=== PATIENT | male | born 1975 | race Hispanic/Latino ===

== ENCOUNTER 2020-09-02 10:05 | Inpatient (IN) | payer OTHER, SELFPAY ==
--- NOTE | 2020-09-02 13:08 | PDOC.FPRHP ---
- History of Present Illness Chief Complaint: AMS History of Present Illness: Mr. Ring is a 45M presenting from [facility] where he has been residing for 34 days for alcohol use disorder. 2 days ago he started having confusion, lethargy, and RUQ abdominal pain. He has a hx of alcohol use disorder with complications of cirrhosis, esophageal varices that required ligation, and a hx of encephalopathy. He takes lactulose daily but did not take it this morning. He states the last time he drank alcohol was 39 days ago. He was taken to [facility] where he was given a total of 45mg lactulose and a banana bag and transferred to us. Other notable labs include: WBC 3.7, H/H 11/36.5, plts 116, PT 18, nml PTT/INR, AST of 41, nml ALT/Alk Phos. CXR and head CT were both normal. In our ED, ammonia was found to be 95 and CK of 218. ED Course: As described above - Allergies/Adverse Reactions Allergies Allergy/AdvReac Type Severity Reaction Status Date / Time Penicillins Allergy Unverified 09/02/20 13:47 - Home Medications Medication Instructions Recorded Confirmed Type Ferrous Sulfate [Feosol] 325 mg PO DAILY 09/02/20 09/02/20 History Furosemide [Lasix] 40 mg PO BID 09/02/20 09/02/20 History Lisinopril/Hydrochlorothiazide 1 tablet PO BID 09/02/20 09/02/20 History [Lisinopril-Hctz 20-12.5 mg Tab] Pantoprazole [Protonix] 40 mg PO DAILY 09/02/20 09/02/20 History Potassium Chloride 10 meq PO DAILY 09/02/20 09/02/20 History Propranolol [Inderal] 10 mg PO TID 09/02/20 09/02/20 History - History PMHx: alcohol use disorder with cirrhosis and hx of esophageal varices and encephalopathy. HTN, DM PSHx: esophageal varices ligated FHx: Unknown as pt is adopted Social: no alcohol x 39 days. Chews tobacco. Denies other drug use. Lives at [facility] x 34 days - Review of Systems ROS unobtainable: other (limited by pt's somnolence) General: reports: fatigue Respiratory: denies: cough, shortness of breath Cardiovascular: denies: chest pain, edema Gastrointestinal: reports: abdominal pain. denies: vomiting, diarrhea, GI bleeding Genitourinary: denies: dysuria Skin: denies: rashes, lesions Musculoskeletal: denies: pain - Vital signs BP: 151/93 HR: 89 RR: 20 Tmax: 97.4F Pox: 99% on RA Wt: 166kg - Physical Exam Constitutional: NAD, well developed (obese) -Constitutional: Lethargic, falls asleep as he is talking but is easily arousable HEENT: normocephalic and atraumatic, grossly normal vision, grossly normal hearing Neck: supple Chest: no-tender to palpation, no lesions Heart: RRR, normal S1/S2, no murmurs/rubs/gallops, no edema Lungs: CTAB, no respiratory distress, good air movement Abdomen: soft, bowel sounds present, no masses/distention -Abdomen: Mildly tender to deep palpation in RUQ. Unclear whether this is because deep palpation is required to put pressure on the liver or if it is truly not that tender. No visible caput medusae or spider angiomata Musculoskeletal: normal structure, normal tone Neurological: no focal deficit Skin: no rash/lesions Heme/Lymphatic: no petechia Psychiatric: normal mood and affect, good judgment and insight, intact recent and remote memory FMR H&P: Results - Labs Lab results: Ammonia 95 umol/L (18-72) H 09/02/20 10:40 Lab results from [facility] and [facility] reviewed by me FMR H&P: A/P - Plan Likely hepatic encephalopathy - Hx of alcohol use disorder with cirrhosis and hx of encephalopathy - MELD score 11 - Last drank >30 days ago, living at [facility] - Takes lactulose daily - Received 45mg in [facility] and another 30mg are ordered - Lactulose scheduled at 20mg BID until 2-3 BMs per day Hx of esophageal varices - s/p ligation - Restart home meds HTN - POA - Monitor BPs - Continue home meds DM - Per pt, was diagnosed but does not take medications - A1c ordered - ACHS checks with SSI - Hypoglycemia protocol ordered Obesity - Educate regarding diet and exercise Dispo: Inpt medical, LOS >48h Diet: HH DVT: Joseph 40 IVF: N/A PCP: CC Code: Full FMR H&P: Upper Level - Pertinent findings Mr Ring is a 45yo male with pmh of liver cirrhosis 2/2 long hx of alcohol abuse presents with AMS and abdominal pain. Pt is a member of [facility] rehab and they report he has been altered for last 2 days. He reports he is back to his baseline but was very confused the last day or 2. Has had this happened before and it resolved with increase in his lactulose dose. Reports abdominal pain that started yesterday. Has been sober for 1 week and 5 days per patient. Has a hx of seizures and etoh withdrawal, reports he had it this time he stopped drinking but it has resolved. Last BM yesterday. At OSH received lactulose 30ml, 15ml and 1L banana bag. Sees Dr Cerda ([facility]) and Dr Wing ([place]). PE: General: Alert and oriented to person, place, time and situation. NAD, morbidly obese. Falling asleep towards end of interview. When asleep deep snoring and choking. HEENT: No scleral icterus CV: RRR, no murmur Pulm: CTA b/l Extremities: No edema CT: neg Bedside US with no ascites A/P: Acute encephalopathy 2/2 alcoholic cirrhosis - A&Ox4. Ammonia 95. Titrate lactulose to 2-3 BMs per day. Admit to medical. Cirrhosis - MELD: 11. Abdominal Pain - Afebrile, no ascites on bedside US. No concern for SBP. Continue to monitor. Would avoid use of NSAIDs and Tylenol due to cirrhosis. Avoid opioids if possible due to pts encephalopathy. Alcohol abuse - Last drink 12 days ago. Monitor with ASE protocol. Ativan PRN. Daily folate, MV and thiamine. Has hx of withdrawal seizures CLAUDE - Noncompliant with CPAP, will order for inpatient - Plan Date/Time: 09/02/20 1308 IBonny, have evaluated this patient and agree with findings/plan as outlined by compensation intern resident. Pertinent changes/additions are listed here.
[2020-09-02 13:43] VITALS: BMI 50.9
[2020-09-02] MEDS ORDERED: Morphine 2 MG/ML VIAL SLOW IVP PRN (13:47)
[2020-09-02] MEDS ORDERED: Ondansetron PF 4 MG/2 ML Vial IVP PRN (14:00)
[2020-09-02] MEDS ORDERED: Acetaminophen 325 MG TAB PO PRN (14:00)
[2020-09-02] MEDS ORDERED: Ondansetron ODT 4 MG TAB SL PRN (14:00)
[2020-09-02] MEDS ORDERED: HumaLOG 300 UNITS/3 ML VIAL SC PRN ×2 (16:20)
[2020-09-02] MEDS ORDERED: Dextrose 50% Abboject 50 ML SYRINGE SLOW IVP PRN (16:20)
[2020-09-02] MEDS ORDERED: Dextrose 5% in Water 1,000 ML IV PRN (16:20)
[2020-09-02] MEDS ORDERED: Lorazepam 2 MG/ML VIAL SLOW IVP PRN (16:50)
[2020-09-02 19:30] LABS: Hemoglobin A1c 4.5 % (4.0-6.0)
[2020-09-02] MEDS ORDERED: Lisinopril/Hydrochlorothiazide 20 mg/12.5 mg Tablet PO SCH (21:00)
[2020-09-02] MEDS: Furosemide 40 MG TAB PO SCH (21:05)
[2020-09-02] MEDS: Propranolol 10 MG TAB PO SCH (21:05)
[2020-09-03 06:15] LABS: ALT (SGPT) 20 U/L (8-55); AST (SGOT) 33 U/L (5-34); Albumin 2.9 g/dL (3.5-5.0); Alkaline Phosphatase 50 U/L (40-110); Anion Gap 11 mmol/L (10-20); BUN (Urea Nitrogen) 10 mg/dL (8.9-20.6); Bilirubin, Total 1.2 mg/dL (0.2-1.2); Calc. Creatinine Clearance 237 mL/min (70-130); Calcium 8.6 mg/dL (7.8-10.44); Carbon Dioxide 24 mmol/L (22-29); Chloride 106 mmol/L (98-107); Estimated GFR-MDRD 88; Globulin 4.1 g/dL (2.4-3.5); Glucose 107 mg/dL (70-105); Potassium 3.7 mmol/L (3.5-5.1); Sodium 137 mmol/L (136-145)
--- NOTE | 2020-09-03 06:44 | PDOC.FM ---
- Subjective Subjective: Mr. Ring is doing well this morning and is A&O x4. He is still extremely lethargic and fell asleep multiple times during his assessment. He states his abdominal pain has resolved. He states he had 5 BMs yesterday and 1 this morning. - Objective Vital Signs & Weight: Vital Signs (12 hours) Temp Pulse Resp BP Pulse Ox 09/03/20 04:23 97.5 F L 78 18 104/68 98 09/03/20 02:43 118/60 09/03/20 01:11 97.1 F L 84 20 98/57 L 98 09/02/20 21:05 92 09/02/20 20:00 98.5 F 92 18 130/88 100 Weight Weight 165.561 kg I&O: 09/01/20 09/02/20 09/03/20 06:59 06:59 06:59 Intake Total 480 Balance 480 Result Diagrams: 09/03/20 05:28 Phys Exam - Physical Examination Constitutional: NAD (sleeping comfortably, easily arousable, but lethargic and falls asleep quickly) HEENT: moist MMs Neck: supple Respiratory: clear to auscultation bilateral Cardiovascular: RRR (difficult to auscultate, likely 2/2 body habitus) Gastrointestinal: soft, non-tender (to light and deep palpation), no distention, positive bowel sounds Musculoskeletal: no edema, pulses present (2+ in dp b/l) Neurological: non-focal, moves all 4 limbs Psychiatric: A&O x 3 Skin: no rash Dx/Plan - Plan Plan: Likely hepatic encephalopathy - Hx of alcohol use disorder with cirrhosis and hx of encephalopathy - MELD score 11 - ASE protocol ordered - Has had 6+ BMs since arrival d/t lactulose. - A&O x4 - Plan discharge today Hx of esophageal varices - s/p ligation - Restart home meds HTN - POA - Monitor BPs - Continue home meds Obesity - Educate regarding diet and exercise DM - Ruled out: A1c 4.5 - ACHS checks, SSI, hypoglycemia protocol discontinued Dispo: Inpt medical, plan for discharge today Diet: HH DVT: Joseph 40 IVF: N/A PCP: CC Code: Full
[2020-09-03] MEDS ORDERED: Enoxaparin Sodium 40 MG/0.4 ML SYRINGE SC SCH (09:00)
[2020-09-03] MEDS ORDERED: Potassium Chloride 10 MEQ TAB PO SCH (09:00)
[2020-09-03] MEDS ORDERED: Ferrous Sulfate 325 MG TAB PO SCH (09:00)
[2020-09-03] MEDS: Propranolol 10 MG TAB PO SCH ×2 (09:54→15:42)
[2020-09-03] MEDS: Furosemide 40 MG TAB PO SCH ×2 (09:56→13:28)
[2020-09-03 11:01] LABS: SARS-CoV-2 MS2 Positive; SARS-CoV-2 N Gene Negative; SARS-CoV-2 S Gene Negative; SARS-CoV-2 by NAA Not Detected (NotDetected); SARS-CoV-2 orf1ab Negative
[2020-09-03 11:07] VITALS: BP 124/69; TEMP 98.7
--- NOTE | 2020-09-05 14:35 | DIS ---
DATE OF ADMISSION: 09/02/2020 DATE OF DISCHARGE: 09/03/2020 RESIDENT: LATOYA RAMSEY MD. ADMITTING ATTENDING: Russell Longo MD. DISCHARGE ATTENDING: Russell Longo MD. CONSULT: None. PROCEDURES: None. PRIMARY DIAGNOSIS: Hepatic encephalopathy secondary to cirrhosis as a result of a history of alcohol use disorder. SECONDARY DIAGNOSES: History of esophageal varices, history of hepatic encephalopathy, hypertension, and diabetes. DISCHARGE MEDICATIONS: 1. Propranolol 10 mg p.o. t.i.d. 2. Protonix 40 mg p.o. daily. 3. Lisinopril-hydrochlorothiazide 20-12.5 mg one tablet p.o. twice daily. 4. Furosemide 40 mg p.o. b.i.d. 5. Ferrous sulfate 325 mg p.o. daily. 6. Potassium chloride 10 mEq p.o. daily. 7. Lactulose. DISCONTINUED MEDICATIONS: None. HPI/HOSPITAL COURSE: Mr. Ring is a 45-year-old male who presented from [facility] where he had been residing for 34 days for alcohol use disorder. Two days prior to arrival, he was having confusion, lethargy, right upper quadrant abdominal pain. He has a history of alcohol use complications of cirrhosis, esophageal varices, and hepatic encephalopathy. He takes lactulose daily, but did not take it in the past 2 days. The last time he drank alcohol was 39 days ago. He was initially taken to [facility] where he was given a total of 45 mg of lactulose and a banana bag and then transferred to us. Notable labs include ammonia 95, CK 218. White cell count of 3.7, hemoglobin of 11, hematocrit 36.5, and platelets 116. PT 18, normal PTT/INR, AST 41, normal ALT/alkaline phosphatase. Chest x-ray and head CT were both normal. He was found to have a MELD score of 11. Lactulose was scheduled at 20 mg b.i.d. initially with titration until 2 to 3 bowel movements per day was elicited. Later that same day, he was A and O x3 and was much less somnolent. By the next morning, his right upper quadrant abdominal pain had resolved, and his mentation was back to baseline, so he was discharged. DISPOSITION: Stable. DISCHARGE INSTRUCTION: LOCATION: [facility]. DIET: Diabetic diet. ACTIVITY: As tolerated. FOLLOWUP: The patient has said to not have a PCP and was encouraged to follow up with us at [facility] in 7 to 10 days. A card was provided to him. Job ID: [id number]
== END 2020-09-03 16:22 | disposition home or self-care (01) | DRG 433 ==
LOC: ERS 10:05 → T4-A 11:45
PROVIDERS: ADMIT Family Medicine; ATTEND Family Medicine
PROC: HZ2ZZZZ Detoxification Services for Substance Abuse Treatment (ICD-10-PCS; principal; 2020-09-02)
DX: K70.40 Alcoholic hepatic failure without coma (principal); I85.10 Secondary esophageal varices without bleeding; Z68.43 Body mass index [BMI] 50.0-59.9, adult; K70.30 Alcoholic cirrhosis of liver without ascites; E11.9 Type 2 diabetes mellitus without complications; Z20.828 Contact with and (suspected) exposure to other viral communicable diseases; I50.9 Heart failure, unspecified; I11.0 Hypertensive heart disease with heart failure; F17.220 Nicotine dependence, chewing tobacco, uncomplicated; G47.33 Obstructive sleep apnea (adult) (pediatric); F10.10 Alcohol abuse, uncomplicated; E66.01 Morbid (severe) obesity due to excess calories; Z88.0 Allergy status to penicillin; Z79.899 Other long term (current) drug therapy; Z91.19 Patient's noncompliance with other medical treatment and regimen
CPT/HCPCS: 36415; 36416; 80053; 82140; 83036; 87635; 99285; U0003

== ENCOUNTER 2022-09-03 10:47 | Inpatient (IN) | payer SELFPAY ==
[2022-09-03] MEDS ORDERED: Ondansetron PF 4 MG/2 ML Vial ONE ×2 (11:35→11:36)
[2022-09-03] MEDS ORDERED: Morphine 4 MG/ML VIAL ONE (11:35)
[2022-09-03] MEDS ORDERED: Furosemide 40 MG/4 ML VIAL ONE (11:35)
[2022-09-03 11:42] LABS: #Eosinphils 0.1 thou/uL (0.0-0.7); #Lymphocytes 0.5 thou/uL (1.20-3.40); #Monocytes 0.3 thou/uL (0.11-0.59); #Neutrophils 1.5 thou/uL (1.40-6.50); %Basophils 0.9 % (0.0-1.0); %Eosinophils 2.9 % (0.0-10.0); %Lymphocytes 20.1 % (21.0-51.0); %Monocytes 11.5 % (0.0-10.0); %Neutrophils 64.6 % (42.0-75.0); Hemoglobin 8.9 g/dL (14.0-18.0); Mean Corpuscular HGB CONC 30.7 g/dL (32.0-36.0); Mean Corpuscular Hemoglobin 24.2 pg (27.0-31.0); Mean Corpuscular Volume 78.9 fL (78.0-98.0); Mean Platelet Volume 12.4 fL (7.4-10.4); Platelet Count 42 thou/uL (130-400); RBC Distribution Width 16.2 % (11.5-14.5); Red Blood Cell (RBC) Count 3.66 mill/uL (4.70-6.10); White Blood Cell (WBC) Count 2.3 thou/uL (4.8-10.8)
[2022-09-03 11:54] LABS: ALT (SGPT) 43 U/L (8-55); AST (SGOT) 76 U/L (5-34); Albumin 3.2 g/dL (3.5-5.0); Alkaline Phosphatase 83 U/L (40-110); Anion Gap 17 mmol/L (10-20); BUN (Urea Nitrogen) 5 mg/dL (8.9-20.6); Bilirubin, Total 1.9 mg/dL (0.2-1.2); Calc. Creatinine Clearance 0 mL/min (70-130); Calcium 8.2 mg/dL (7.8-10.44); Carbon Dioxide 19 mmol/L (22-29); Chloride 106 mmol/L (98-107); Estimated GFR 116; Globulin 4.1 g/dL (2.4-3.5); Glucose 103 mg/dL (70-105); Lipase 32 U/L (8-78); Potassium 4.3 mmol/L (3.5-5.1); Protein, Total 7.3 g/dL (6.0-8.3); Sodium 138 mmol/L (136-145)
[2022-09-03 12:06] LABS: Hypochromia SLIGHT = 6-15 cells (100X) (0-5/hpf); Large Platelets SLIGHT; MDiff Complete? YES; Ovalocytes SLIGHT = 2-5 cells (100X) (0-1/hpf); Platelet Morphology Comment Appears Decreased; Polychromasia SLIGHT = 2-3 cells (100X) (0-2/hpf); Target Cells SLIGHT = 2-5 cells (100X) (0-1/hpf); Tear Drops SLIGHT = 2-5 cells (100X) (0-1/hpf)
[2022-09-03 12:40] LABS: SARS-CoV-2 NAA Rapid Test Not Detected (NotDetected)
[2022-09-03 13:38] LABS: INR-International Normal Ratio 1.6; PTT 35.2 sec (22.9-36.1)
[2022-09-03 13:42] LABS: CK (CPK) 336 U/L (30-200); Magnesium 1.5 mg/dL (1.6-2.6); Phosphorus 2.8 mg/dL (2.3-4.7)
[2022-09-03] MEDS ORDERED: Electrolyte Replacement Protocol 1 EACH FS SCH (14:30)
[2022-09-03] MEDS ORDERED: Calcium Carbonate 500 MG ChewTAB PO PRN (14:36)
[2022-09-03] MEDS ORDERED: Ondansetron ODT 4 MG TAB PO PRN (14:36)
[2022-09-03] MEDS ORDERED: Ondansetron PF 4 MG/2 ML Vial IVP PRN (14:36)
[2022-09-03] MEDS ORDERED: Senokot S 8.6-50 MG TAB PO PRN (14:36)
[2022-09-03] MEDS ORDERED: Dextrose 5% in Water 1,000 ML IV PRN (14:40)
[2022-09-03] MEDS ORDERED: Dextrose 50% Abboject 50 ML SYRINGE SLOW IVP PRN (14:40)
[2022-09-03] MEDS ORDERED: Insulin Regular 300 UNITS/3 ML VIAL SC PRN ×2 (14:40)
[2022-09-03] MEDS ORDERED: Magnesium Sulfate In Water 4 GM in Premix Bag 1 BAG IVPB SCH (15:00)
[2022-09-03] MEDS: Furosemide 40 MG/4 ML VIAL SLOW IVP SCH (15:58)
[2022-09-03] MEDS: Potassium Chloride 20 MEQ TAB PO SCH (15:58)
[2022-09-03] MEDS: Propranolol 10 MG TAB PO SCH ×2 (15:58→21:05)
[2022-09-03] MEDS: Albumin 25% 25 GM/100 ML BOT IVPB SCH ×2 (15:58→20:53)
[2022-09-03 18:49] LABS: Critical Call CKMB RESULT DECREASING
[2022-09-03] MEDS ORDERED: diphenhydrAMINE 25 MG CAP PO SCH (20:00)
[2022-09-03] MEDS: Multivit, Therapeutic 1 TAB PO SCH (20:51)
[2022-09-03] MEDS: Thiamine 100 MG TAB PO SCH (20:52)
[2022-09-03] MEDS: Folic Acid 1 MG TAB PO SCH (20:52)
[2022-09-04] MEDS: Albumin 25% 25 GM/100 ML BOT IVPB SCH ×3 (03:28→15:10)
[2022-09-04] MEDS: Furosemide 40 MG/4 ML VIAL SLOW IVP SCH ×2 (07:29→15:10)
[2022-09-04] MEDS: Propranolol 10 MG TAB PO SCH ×3 (08:13→20:52)
[2022-09-04] MEDS: Potassium Chloride 20 MEQ TAB PO SCH ×2 (08:13→15:11)
[2022-09-04] MEDS ORDERED: Aspirin 81 mg Enteric Coated Tablet PO SCH (09:00)
[2022-09-04 12:39] VITALS: BMI 61.6
[2022-09-04] MEDS: Folic Acid 1 MG TAB PO SCH (20:52)
[2022-09-04] MEDS: Multivit, Therapeutic 1 TAB PO SCH (20:52)
[2022-09-04] MEDS: Thiamine 100 MG TAB PO SCH (20:52)
[2022-09-05] MEDS ORDERED: Melatonin 3 MG TAB PO SCH (01:30)
[2022-09-05 03:19] LABS: Anion Gap 11 mmol/L (10-20); BUN (Urea Nitrogen) 15 mg/dL (8.9-20.6); Calc. Creatinine Clearance 274 mL/min (70-130); Carbon Dioxide 29 mmol/L (22-29); Chloride 101 mmol/L (98-107); Estimated GFR 101; Glucose 97 mg/dL (70-105); Magnesium 1.9 mg/dL (1.6-2.6); Potassium 3.9 mmol/L (3.5-5.1); Sodium 137 mmol/L (136-145)
[2022-09-05] MEDS: Furosemide 40 MG/4 ML VIAL SLOW IVP SCH (05:44)
[2022-09-05] MEDS ORDERED: Magnesium 2 GM/50 ML(in water) 2 GM in Premix Bag 1 BAG IVPB SCH (08:00)
[2022-09-05] MEDS: Propranolol 10 MG TAB PO SCH (08:25)
[2022-09-05] MEDS: Potassium Chloride 20 MEQ TAB PO SCH (08:26)
[2022-09-05 08:35] VITALS: BP 117/56
[2022-09-05 08:46] VITALS: TEMP 97.7
== END 2022-09-05 11:34 | disposition home or self-care (01) | DRG 154 ==
LOC: ERS 10:47 → 2SW 14:39
PROVIDERS: ADMIT Internal Medicine; ATTEND Internal Medicine
DX: G47.33 Obstructive sleep apnea (adult) (pediatric) (principal); I50.33 Acute on chronic diastolic (congestive) heart failure; J96.21 Acute and chronic respiratory failure with hypoxia; Z68.44 Body mass index [BMI] 60.0-69.9, adult; I85.10 Secondary esophageal varices without bleeding; E66.01 Morbid (severe) obesity due to excess calories; E11.9 Type 2 diabetes mellitus without complications; K70.30 Alcoholic cirrhosis of liver without ascites; D69.6 Thrombocytopenia, unspecified; K21.9 Gastro-esophageal reflux disease without esophagitis; I11.0 Hypertensive heart disease with heart failure; R79.89 Other specified abnormal findings of blood chemistry; E83.42 Hypomagnesemia; Z20.822 Contact with and (suspected) exposure to COVID-19; Z88.0 Allergy status to penicillin; Z88.8 Allergy status to other drugs, medicaments and biological substances; Z98.84 Bariatric surgery status; Z79.899 Other long term (current) drug therapy; Z87.891 Personal history of nicotine dependence
CPT/HCPCS: 36415; 36416; 71045; 76705; 80048; 80053; 82550; 82553; 83690; 83735; 83880; 84100; 84484; 85025; 85610; 85730; 93005; 93306; 94760; 96374; 96375; J1940; J2270; J2405; J3475; P9047

== ENCOUNTER 2022-10-07 14:30 | Inpatient (IN) | payer SELFPAY ==
[2022-10-07] MEDS ORDERED: HumaLOG 300 UNITS/3 ML VIAL SC PRN ×2 (17:59)
[2022-10-07] MEDS ORDERED: Ondansetron PF 4 MG/2 ML Vial IVP PRN (17:59)
[2022-10-07] MEDS ORDERED: Dextrose 50% Abboject 50 ML SYRINGE SLOW IVP PRN (17:59)
[2022-10-07] MEDS ORDERED: Acetaminophen 325 MG TAB PO PRN (17:59)
[2022-10-07] MEDS ORDERED: Senokot S 8.6-50 MG TAB PO PRN (17:59)
[2022-10-07] MEDS ORDERED: Dextrose 5% in Water 1,000 ML IV PRN (17:59)
[2022-10-07] MEDS ORDERED: Guaifenesin DM 100-10/5 ML UDCUP PO PRN (17:59)
[2022-10-07] MEDS: Morphine 4 MG/ML VIAL SLOW IVP PRN ×2 (18:47→23:09)
[2022-10-07 19:12] LABS: Iron 30 ug/dL (65-175); Iron Binding Capacity, Total 373 mcg/dL (261-462)
[2022-10-07 19:36] LABS: Ferritin 96.71 ng/mL (22-322)
[2022-10-07] MEDS: Carvedilol 3.125 MG TAB PO SCH (21:55)
[2022-10-07] MEDS: Folic Acid 1 MG TAB PO SCH (21:55)
[2022-10-07] MEDS: Thiamine 100 MG TAB PO SCH (21:55)
[2022-10-07] MEDS: Pantoprazole 40 MG VIAL IVP SCH (21:56)
[2022-10-08] MEDS: Morphine 4 MG/ML VIAL SLOW IVP PRN ×2 (04:25→08:34)
[2022-10-08] MEDS: Furosemide 40 MG/4 ML VIAL SLOW IVP SCH ×2 (06:20→14:52)
[2022-10-08] MEDS: Carvedilol 3.125 MG TAB PO SCH (08:25)
[2022-10-08] MEDS: Pantoprazole 40 MG VIAL IVP SCH ×2 (08:26→20:26)
[2022-10-08] MEDS: Potassium Chloride 20 MEQ TAB PO SCH ×2 (08:27→16:12)
[2022-10-08] MEDS ORDERED: Losartan 25 MG TAB PO SCH (09:00)
[2022-10-08 09:37] LABS: ALT (SGPT) 59 U/L (8-55); AST (SGOT) 100 U/L (5-34); Albumin 3.2 g/dL (3.5-5.0); Alkaline Phosphatase 85 U/L (40-110); Anion Gap 12 mmol/L (10-20); BUN (Urea Nitrogen) 9 mg/dL (8.9-20.6); Bilirubin, Total 3.9 mg/dL (0.2-1.2); Calc. Creatinine Clearance 346 mL/min (70-130); Calcium 8.3 mg/dL (7.8-10.44); Carbon Dioxide 26 mmol/L (22-29); Chloride 101 mmol/L (98-107); Estimated GFR 111; Globulin 3.9 g/dL (2.4-3.5); Glucose 101 mg/dL (70-105); Potassium 3.7 mmol/L (3.5-5.1); Protein, Total 7.1 g/dL (6.0-8.3); Sodium 135 mmol/L (136-145)
[2022-10-08 10:23] LABS: Hemoglobin 7.7 g/dL (14.0-18.0); Mean Corpuscular HGB CONC 30.9 g/dL (32.0-36.0); Mean Corpuscular Hemoglobin 24.7 pg (27.0-31.0); Mean Corpuscular Volume 79.7 fl (78.0-98.0); Mean Platelet Volume 12.6 fL (7.4-10.4); Platelet Count 38 10x3/uL (130-400); White Blood Cell (WBC) Count 2.4 10x3/uL (4.8-10.8)
[2022-10-08 11:27] LABS: Band 1 % (5-11); Elliptocytes SLIGHT = 2-5 cells (100X) (0-1/hpf); Eosinophils 1 % (0-10); Hypochromia MODERATE=16-30 cells (100X) (0-5/hpf); Lymphocytes 11 % (21-51); MDiff Complete? YES; Monocytes 8 % (0-10); Neutrophil 76 % (42-75); Platelet Morphology Comment Appears Decreased
[2022-10-08] MEDS ORDERED: Empagliflozin 25 MG TAB PO SCH (11:30)
[2022-10-08] MEDS ORDERED: Spironolactone 25 MG TAB PO SCH (11:45)
[2022-10-08] MEDS: Iron, Sodium Ferric Gluconate 250 MG in Sodium Chloride 0.9% 250 ML 250 ML IVPB SCH (14:52)
[2022-10-08] MEDS: Carvedilol 6.25 MG TAB PO SCH (16:12)
[2022-10-08] MEDS: Folic Acid 1 MG TAB PO SCH (20:26)
[2022-10-08] MEDS: Rifaximin 550 MG TAB PO SCH (20:26)
[2022-10-08] MEDS: Thiamine 100 MG TAB PO SCH (20:26)
[2022-10-08 23:11] LABS: Hemoglobin A1c 5.3 % (4.0-6.0)
[2022-10-09] MEDS ORDERED: diphenhydrAMINE 25 MG CAP PO SCH (00:45)
[2022-10-09 05:43] LABS: Anion Gap 14 mmol/L (10-20); BUN (Urea Nitrogen) 11 mg/dL (8.9-20.6); Calc. Creatinine Clearance 341 mL/min (70-130); Calcium 8.2 mg/dL (7.8-10.44); Carbon Dioxide 22 mmol/L (22-29); Chloride 103 mmol/L (98-107); Estimated GFR 112; Glucose 81 mg/dL (70-105); Potassium 4.5 mmol/L (3.5-5.1); Sodium 134 mmol/L (136-145)
[2022-10-09] MEDS: Furosemide 40 MG/4 ML VIAL SLOW IVP SCH ×2 (06:25→15:04)
[2022-10-09 08:31] LABS: Anion Gap 11 mmol/L (10-20); BUN (Urea Nitrogen) 11 mg/dL (8.9-20.6); Calc. Creatinine Clearance 325 mL/min (70-130); Calcium 8.4 mg/dL (7.8-10.44); Carbon Dioxide 27 mmol/L (22-29); Chloride 102 mmol/L (98-107); Estimated GFR 110; Glucose 88 mg/dL (70-105); Potassium 3.6 mmol/L (3.5-5.1); Sodium 136 mmol/L (136-145)
[2022-10-09] MEDS: Pantoprazole 40 MG VIAL IVP SCH ×2 (08:39→21:23)
[2022-10-09] MEDS: Potassium Chloride 20 MEQ TAB PO SCH ×2 (08:40→17:09)
[2022-10-09] MEDS: Empagliflozin 25 MG TAB PO SCH (08:40)
[2022-10-09] MEDS: Spironolactone 25 MG TAB PO SCH (08:40)
[2022-10-09] MEDS: Multivitamin W/ Minerals 1 TAB PO SCH (08:40)
[2022-10-09] MEDS: Losartan 25 MG TAB PO SCH (08:40)
[2022-10-09] MEDS: Rifaximin 550 MG TAB PO SCH ×2 (08:40→21:23)
[2022-10-09] MEDS: Carvedilol 6.25 MG TAB PO SCH ×2 (08:40→17:09)
[2022-10-09 09:22] LABS: #Eosinphils 0.1 thou/uL (0.0-0.7); #Lymphocytes 0.7 thou/uL (1.20-3.40); #Monocytes 0.4 thou/uL (0.11-0.59); #Neutrophils 1.4 thou/uL (1.40-6.50); %Basophils 0.9 % (0.0-1.0); %Monocytes 14.3 % (0.0-10.0); %Neutrophils 54.8 % (42.0-75.0); Hemoglobin 7.3 g/dL (14.0-18.0); Mean Corpuscular HGB CONC 28.5 g/dL (32.0-36.0); Mean Corpuscular Hemoglobin 23.3 pg (27.0-31.0); Mean Corpuscular Volume 81.6 fl (78.0-98.0); Mean Platelet Volume 13.3 fL (7.4-10.4); Platelet Count 47 10x3/uL (130-400); RBC Distribution Width 19.2 % (11.5-14.5); Red Blood Cell (RBC) Count 3.15 mill/uL (4.70-6.10); White Blood Cell (WBC) Count 2.6 10x3/uL (4.8-10.8)
[2022-10-09 09:45] LABS: Hypochromia SLIGHT = 6-15 cells (100X) (0-5/hpf); MDiff Complete? YES; Platelet Morphology Comment Appears Decreased; Polychromasia SLIGHT = 2-3 cells (100X) (0-2/hpf)
[2022-10-09] MEDS: Iron, Sodium Ferric Gluconate 250 MG in Sodium Chloride 0.9% 250 ML 250 ML IVPB SCH (11:13)
[2022-10-09] MEDS: Thiamine 100 MG TAB PO SCH (21:23)
[2022-10-09] MEDS: Folic Acid 1 MG TAB PO SCH (21:23)
[2022-10-10 05:35] LABS: Anion Gap 9 mmol/L (10-20); BUN (Urea Nitrogen) 13 mg/dL (8.9-20.6); Calc. Creatinine Clearance 299 mL/min (70-130); Calcium 8.5 mg/dL (7.8-10.44); Carbon Dioxide 29 mmol/L (22-29); Chloride 102 mmol/L (98-107); Estimated GFR 107; Glucose 99 mg/dL (70-105); Potassium 3.8 mmol/L (3.5-5.1); Sodium 136 mmol/L (136-145)
[2022-10-10 06:02] LABS: Anisocytosis SLIGHT = 6-15 cells (100X) (0-5/hpf); Band 1 % (5-11); Eosinophils 4 % (0-10); Hypochromia SLIGHT = 6-15 cells (100X) (0-5/hpf); Lymphocytes 23 % (21-51); MDiff Complete? YES; Mean Corpuscular HGB CONC 30.9 g/dL (32.0-36.0); Mean Corpuscular Hemoglobin 25.4 pg (27.0-31.0); Mean Corpuscular Volume 82.2 fl (78.0-98.0); Mean Platelet Volume 13.1 fL (7.4-10.4); Monocytes 11 % (0-10); Myelocyte 3 % (0-0); Neutrophil 57 % (42-75); Nucleated RBC 1 % (0); Platelet Count 51 10x3/uL (130-400); Platelet Morphology Comment Appears Decreased; Polychromasia SLIGHT = 2-3 cells (100X) (0-2/hpf); RBC Distribution Width 19.8 % (11.5-14.5); Red Blood Cell (RBC) Count 2.75 mill/uL (4.70-6.10); White Blood Cell (WBC) Count 2.9 10x3/uL (4.8-10.8)
[2022-10-10] MEDS: Furosemide 40 MG/4 ML VIAL SLOW IVP SCH ×2 (06:47→13:10)
[2022-10-10] MEDS: Spironolactone 25 MG TAB PO SCH (08:34)
[2022-10-10] MEDS: Losartan 25 MG TAB PO SCH (08:34)
[2022-10-10] MEDS: Carvedilol 6.25 MG TAB PO SCH ×2 (08:34→16:08)
[2022-10-10] MEDS: Potassium Chloride 20 MEQ TAB PO SCH ×2 (08:35→16:09)
[2022-10-10] MEDS: Empagliflozin 25 MG TAB PO SCH (08:35)
[2022-10-10] MEDS: Multivitamin W/ Minerals 1 TAB PO SCH (08:36)
[2022-10-10] MEDS: Rifaximin 550 MG TAB PO SCH ×2 (08:36→19:53)
[2022-10-10] MEDS: Pantoprazole 40 MG VIAL IVP SCH ×2 (08:37→19:53)
[2022-10-10 12:17] LABS: Hemoglobin 7.5 g/dL (14.0-18.0)
[2022-10-10] MEDS: Folic Acid 1 MG TAB PO SCH (19:53)
[2022-10-10] MEDS: Thiamine 100 MG TAB PO SCH (19:53)
[2022-10-11 06:00] LABS: Anion Gap 10 mmol/L (10-20); BUN (Urea Nitrogen) 12 mg/dL (8.9-20.6); Calc. Creatinine Clearance 287 mL/min (70-130); Calcium 8.3 mg/dL (7.8-10.44); Carbon Dioxide 27 mmol/L (22-29); Chloride 106 mmol/L (98-107); Estimated GFR 105; Glucose 93 mg/dL (70-105); Potassium 3.8 mmol/L (3.5-5.1); Sodium 139 mmol/L (136-145)
[2022-10-11] MEDS: Furosemide 40 MG/4 ML VIAL SLOW IVP SCH ×2 (06:05→14:25)
[2022-10-11 06:54] LABS: #Eosinphils 0.2 thou/uL (0.0-0.7); #Lymphocytes 0.9 thou/uL (1.20-3.40); #Monocytes 0.5 thou/uL (0.11-0.59); #Neutrophils 1.8 thou/uL (1.40-6.50); %Basophils 0.8 % (0.0-1.0); %Eosinophils 5.7 % (0.0-10.0); %Lymphocytes 27.6 % (21.0-51.0); %Monocytes 13.7 % (0.0-10.0); %Neutrophils 52.2 % (42.0-75.0); Hemoglobin 7.3 g/dL (14.0-18.0); Hypochromia SLIGHT = 6-15 cells (100X) (0-5/hpf); MDiff Complete? YES; Mean Corpuscular HGB CONC 30.6 g/dL (32.0-36.0); Mean Corpuscular Hemoglobin 25.1 pg (27.0-31.0); Mean Platelet Volume 12.9 fL (7.4-10.4); Ovalocytes SLIGHT = 2-5 cells (100X) (0-1/hpf); Platelet Count 59 10x3/uL (130-400); Platelet Morphology Comment Appears Decreased; RBC Distribution Width 20.4 % (11.5-14.5); Red Blood Cell (RBC) Count 2.92 mill/uL (4.70-6.10); White Blood Cell (WBC) Count 3.4 10x3/uL (4.8-10.8)
[2022-10-11] MEDS: Multivitamin W/ Minerals 1 TAB PO SCH (08:18)
[2022-10-11] MEDS: Rifaximin 550 MG TAB PO SCH ×2 (08:19→20:34)
[2022-10-11] MEDS: Potassium Chloride 20 MEQ TAB PO SCH ×2 (08:19→17:06)
[2022-10-11] MEDS: HYDROcodone/Acetaminophen 5/325 mg Tablet PO PRN ×3 (08:19→20:35)
[2022-10-11] MEDS: Losartan 25 MG TAB PO SCH (08:19)
[2022-10-11] MEDS: Empagliflozin 25 MG TAB PO SCH (08:19)
[2022-10-11] MEDS: Spironolactone 25 MG TAB PO SCH (08:19)
[2022-10-11] MEDS: Pantoprazole 40 MG VIAL IVP SCH ×2 (08:20→20:35)
[2022-10-11] MEDS: Thiamine 100 MG TAB PO SCH (20:34)
[2022-10-11] MEDS: Folic Acid 1 MG TAB PO SCH (20:35)
[2022-10-12] MEDS ORDERED: Melatonin 3 MG TAB PO PRN (00:22)
[2022-10-12] MEDS: HYDROcodone/Acetaminophen 5/325 mg Tablet PO PRN ×5 (01:08→22:47)
[2022-10-12 05:12] LABS: Anion Gap 9 mmol/L (10-20); BUN (Urea Nitrogen) 12 mg/dL (8.9-20.6); Calc. Creatinine Clearance 256 mL/min (70-130); Calcium 8.6 mg/dL (7.8-10.44); Carbon Dioxide 28 mmol/L (22-29); Chloride 104 mmol/L (98-107); Estimated GFR 91; Glucose 91 mg/dL (70-105); Potassium 4.1 mmol/L (3.5-5.1); Sodium 137 mmol/L (136-145)
[2022-10-12] MEDS: Furosemide 40 MG/4 ML VIAL SLOW IVP SCH ×2 (05:29→15:14)
[2022-10-12 06:07] LABS: Anisocytosis MODERATE=16-30 cells (100X) (0-5/hpf); Band 3 % (5-11); Eosinophils 3 % (0-10); Hemoglobin 7.6 g/dL (14.0-18.0); Hypochromia SLIGHT = 6-15 cells (100X) (0-5/hpf); Lymphocytes 21 % (21-51); MDiff Complete? YES; Mean Corpuscular HGB CONC 30.6 g/dL (32.0-36.0); Mean Corpuscular Hemoglobin 25.1 pg (27.0-31.0); Mean Corpuscular Volume 82.1 fl (78.0-98.0); Mean Platelet Volume 11.7 fL (7.4-10.4); Monocytes 13 % (0-10); Myelocyte 2 % (0-0); Neutrophil 58 % (42-75); Platelet Count 69 10x3/uL (130-400); Platelet Morphology Comment Appears Decreased; Poikilocytosis SLIGHT = 6-15 cells (100X) (0-5/hpf); Polychromasia SLIGHT = 2-3 cells (100X) (0-2/hpf); RBC Distribution Width 22.9 % (11.5-14.5); Red Blood Cell (RBC) Count 3.02 mill/uL (4.70-6.10); Target Cells SLIGHT = 2-5 cells (100X) (0-1/hpf); Tear Drops SLIGHT = 2-5 cells (100X) (0-1/hpf); White Blood Cell (WBC) Count 4.1 10x3/uL (4.8-10.8)
[2022-10-12] MEDS: Potassium Chloride 20 MEQ TAB PO SCH ×2 (09:19→16:56)
[2022-10-12] MEDS: Multivitamin W/ Minerals 1 TAB PO SCH (09:19)
[2022-10-12] MEDS: Pantoprazole 40 MG VIAL IVP SCH ×2 (09:19→21:49)
[2022-10-12] MEDS: Spironolactone 25 MG TAB PO SCH (09:19)
[2022-10-12] MEDS: Rifaximin 550 MG TAB PO SCH ×2 (09:20→21:47)
[2022-10-12] MEDS: Empagliflozin 25 MG TAB PO SCH (09:41)
[2022-10-12 18:47] VITALS: BMI 59.3
[2022-10-12] MEDS: Thiamine 100 MG TAB PO SCH (21:46)
[2022-10-12] MEDS: Folic Acid 1 MG TAB PO SCH (21:47)
[2022-10-13] MEDS: Furosemide 40 MG/4 ML VIAL SLOW IVP SCH ×2 (05:55→14:54)
[2022-10-13] MEDS: HYDROcodone/Acetaminophen 5/325 mg Tablet PO PRN ×4 (06:35→21:16)
[2022-10-13] MEDS: Empagliflozin 10 MG TAB PO SCH (08:52)
[2022-10-13] MEDS: Multivitamin W/ Minerals 1 TAB PO SCH (08:52)
[2022-10-13] MEDS: Spironolactone 100 MG TAB PO SCH (08:52)
[2022-10-13] MEDS: Potassium Chloride 10 MEQ TAB PO SCH ×2 (08:52→16:32)
[2022-10-13] MEDS: Rifaximin 550 MG TAB PO SCH ×2 (08:53→21:16)
[2022-10-13] MEDS: Pantoprazole 40 MG VIAL IVP SCH ×2 (08:53→21:16)
[2022-10-13 09:23] LABS: Eosinophils 1 % (0-10); Hemoglobin 8.2 g/dL (14.0-18.0); Hypochromia SLIGHT = 6-15 cells (100X) (0-5/hpf); Lymphocytes 32 % (21-51); MDiff Complete? YES; Mean Corpuscular HGB CONC 29.9 g/dL (32.0-36.0); Mean Corpuscular Hemoglobin 25.1 pg (27.0-31.0); Mean Corpuscular Volume 83.8 fl (78.0-98.0); Mean Platelet Volume 9.9 fL (7.4-10.4); Monocytes 11 % (0-10); Neutrophil 56 % (42-75); Platelet Count 67 10x3/uL (130-400); Platelet Morphology Comment Appears Decreased; RBC Distribution Width 24.1 % (11.5-14.5); Red Blood Cell (RBC) Count 3.27 mill/uL (4.70-6.10); White Blood Cell (WBC) Count 3.4 10x3/uL (4.8-10.8)
[2022-10-13] MEDS: Thiamine 100 MG TAB PO SCH (21:16)
[2022-10-13] MEDS: Folic Acid 1 MG TAB PO SCH (21:16)
[2022-10-14] MEDS: HYDROcodone/Acetaminophen 5/325 mg Tablet PO PRN ×5 (01:49→21:19)
[2022-10-14] MEDS: Furosemide 20 MG/2 ML VIAL SLOW IVP SCH ×2 (06:06→15:20)
[2022-10-14] MEDS: Empagliflozin 10 MG TAB PO SCH (08:12)
[2022-10-14] MEDS: Spironolactone 100 MG TAB PO SCH (08:12)
[2022-10-14] MEDS: Pantoprazole 40 MG VIAL IVP SCH ×2 (08:12→21:18)
[2022-10-14] MEDS: Multivitamin W/ Minerals 1 TAB PO SCH (08:12)
[2022-10-14] MEDS: Rifaximin 550 MG TAB PO SCH ×2 (08:13→21:18)
[2022-10-14] MEDS: Potassium Chloride 10 MEQ TAB PO SCH ×2 (08:13→16:41)
[2022-10-14 09:04] LABS: Anion Gap 15 mmol/L (10-20); BUN (Urea Nitrogen) 12 mg/dL (8.9-20.6); Calc. Creatinine Clearance 258 mL/min (70-130); Calcium 8.7 mg/dL (7.8-10.44); Carbon Dioxide 24 mmol/L (22-29); Chloride 103 mmol/L (98-107); Estimated GFR 95; Glucose 123 mg/dL (70-105); Sodium 138 mmol/L (136-145)
[2022-10-14 09:24] LABS: Anisocytosis MODERATE=16-30 cells (100X) (0-5/hpf); Band 2 % (5-11); Hemoglobin 8.8 g/dL (14.0-18.0); Hypochromia SLIGHT = 6-15 cells (100X) (0-5/hpf); Large Platelets SLIGHT; Lymphocytes 24 % (21-51); MDiff Complete? YES; Mean Corpuscular HGB CONC 29.5 g/dL (32.0-36.0); Mean Corpuscular Volume 84.7 fl (78.0-98.0); Mean Platelet Volume 12.7 fL (7.4-10.4); Monocytes 12 % (0-10); Neutrophil 59 % (42-75); Platelet Count 81 10x3/uL (130-400); Platelet Morphology Comment Appears Decreased; Polychromasia SLIGHT = 2-3 cells (100X) (0-2/hpf); RBC Distribution Width 23.7 % (11.5-14.5); Reactive Lymphocytes 3 % (0-10); Red Blood Cell (RBC) Count 3.52 mill/uL (4.70-6.10); Schistocytes SLIGHT = 2-5 cells (100X) (0-1/hpf); Stomatocytes SLIGHT = 2-5 cells (100X) (0-1/hpf); Tear Drops SLIGHT = 2-5 cells (100X) (0-1/hpf); White Blood Cell (WBC) Count 3.2 10x3/uL (4.8-10.8)
[2022-10-14] MEDS ORDERED: Senokot S 8.6-50 MG TAB PO PRN (14:30)
[2022-10-14] MEDS: Folic Acid 1 MG TAB PO SCH (21:18)
[2022-10-14] MEDS: Thiamine 100 MG TAB PO SCH (21:18)
[2022-10-15] MEDS: HYDROcodone/Acetaminophen 5/325 mg Tablet PO PRN ×3 (01:15→09:53)
[2022-10-15] MEDS: Furosemide 20 MG/2 ML VIAL SLOW IVP SCH (05:14)
[2022-10-15 07:03] LABS: Anion Gap 12 mmol/L (10-20); BUN (Urea Nitrogen) 12 mg/dL (8.9-20.6); Calc. Creatinine Clearance 245 mL/min (70-130); Calcium 8.8 mg/dL (7.8-10.44); Carbon Dioxide 26 mmol/L (22-29); Chloride 102 mmol/L (98-107); Estimated GFR 91; Glucose 111 mg/dL (70-105); Sodium 136 mmol/L (136-145)
[2022-10-15 07:32] LABS: Anisocytosis MODERATE=16-30 cells (100X) (0-5/hpf); Band 8 % (5-11); Eosinophils 2 % (0-10); Hemoglobin 8.7 g/dL (14.0-18.0); Hypochromia SLIGHT = 6-15 cells (100X) (0-5/hpf); Large Platelets SLIGHT; Lymphocytes 31 % (21-51); MDiff Complete? YES; Mean Corpuscular HGB CONC 29.6 g/dL (32.0-36.0); Mean Corpuscular Hemoglobin 24.9 pg (27.0-31.0); Mean Corpuscular Volume 83.9 fl (78.0-98.0); Mean Platelet Volume 15.1 fL (7.4-10.4); Metamyelocyte 1 % (0-0); Monocytes 16 % (0-10); Myelocyte 1 % (0-0); Neutrophil 34 % (42-75); Ovalocytes SLIGHT = 2-5 cells (100X) (0-1/hpf); Platelet Count 70 10x3/uL (130-400); Platelet Morphology Comment Appears Decreased; Polychromasia MODERATE = 3-4 cells (100X) (0-2/hpf); RBC Distribution Width 22.7 % (11.5-14.5); Reactive Lymphocytes 7 % (0-10); Red Blood Cell (RBC) Count 3.48 mill/uL (4.70-6.10); Schistocytes SLIGHT = 2-5 cells (100X) (0-1/hpf); Target Cells SLIGHT = 2-5 cells (100X) (0-1/hpf); White Blood Cell (WBC) Count 2.3 10x3/uL (4.8-10.8)
[2022-10-15] MEDS: Spironolactone 100 MG TAB PO SCH (08:16)
[2022-10-15] MEDS: Potassium Chloride 10 MEQ TAB PO SCH (08:16)
[2022-10-15] MEDS: Multivitamin W/ Minerals 1 TAB PO SCH (08:16)
[2022-10-15] MEDS: Rifaximin 550 MG TAB PO SCH (08:16)
[2022-10-15] MEDS: Pantoprazole 40 MG VIAL IVP SCH (08:22)
[2022-10-15] MEDS: Empagliflozin 10 MG TAB PO SCH (09:53)
[2022-10-15 10:02] VITALS: BP 134/78; TEMP 97.5
== END 2022-10-15 11:00 | disposition home or self-care (01) | DRG 291 ==
LOC: 2SW 14:30 → UNDOADMIN 14:30 → 2SW 14:51 → MSONC 10-15 00:17
PROVIDERS: ADMIT Internal Medicine; ATTEND Internal Medicine
DX: I11.0 Hypertensive heart disease with heart failure (principal); I50.33 Acute on chronic diastolic (congestive) heart failure; D61.818 Other pancytopenia; Z68.44 Body mass index [BMI] 60.0-69.9, adult; E66.2 Morbid (severe) obesity with alveolar hypoventilation; F10.10 Alcohol abuse, uncomplicated; K70.30 Alcoholic cirrhosis of liver without ascites; E11.69 Type 2 diabetes mellitus with other specified complication; D50.9 Iron deficiency anemia, unspecified; Z88.0 Allergy status to penicillin; Z88.6 Allergy status to analgesic agent; Z79.899 Other long term (current) drug therapy; Z91.190 Patient's noncompliance with other medical treatment and regimen due to financial hardship
CPT/HCPCS: 36415; 36416; 36430; 76705; 80048; 80053; 82105; 82140; 82607; 82728; 83036; 83540; 83550; 84443; 85025; 86850; 86900; 86901; 87811; 93306; 94660; 97139; C9113; J1940; J2270; J2916; J7050; P9016; U0003; U0005